=== PATIENT | female | born 1990 | race Caucasian/White ===

== ENCOUNTER 2024-05-26 23:51 | Inpatient (IN) | payer OTHER, SELFPAY ==
[2024-05-26] VITALS (9 sets, daily range): BP systolic 135–165; BP diastolic 90–104
[2024-05-26 21:40] LABS: Glucose - Point of Care 183 mg/dl (70-99)
[2024-05-26] MEDS: NARCAN 2 MG IV ×2 (21:42)
[2024-05-26 21:56] LABS: % Basophils 0.5 % (0-2); % Eosinophils 6.1 % (0-6); % Immature Granulocytes 0.5 % (0-0.5); % Lymphocytes 11.7 % (20.5-51.1); % Monocytes 5.9 % (1.7-9.3); % Neutrophils 75.3 % (42.2-75.2); Absolute Basophils 0.1 10^3/uL (0-0.2); Absolute Immature Granulocytes 0.1 10^3/uL (0-0.05); Absolute Neutrophils 12.7 10^3/uL (1.4-6.5); Hematocrit 43.4 % (37.0-47.0); Mean Corp Hgb Conc. 34.6 g/dL (33.0-37.0); Mean Corpuscular Hgb 29.8 pg (27.0-31.0); Mean Corpuscular Volume 86.1 fL (81.0-99.0); Mean Platelet Volume 9.4 fL (7.4-10.4); Nucleated Red Blood Cells % 0 %; Platelet Count 270 10^3/uL (130-400); Red Blood Cell Count 5.04 10^6/uL (4.20-5.40); Red Cell Dist. Width 12.6 % (11.5-14.5); White Blood Cell Count 16.8 10^3/uL (4.8-10.8)
[2024-05-26] MEDS: NARCAN 4 MG IV (21:57)
[2024-05-26 22:07] LABS: Amphetamines Positive (Negative)
[2024-05-26] MEDS: NARCAN 502 MG IV (22:07)
[2024-05-26 22:08] LABS: Barbiturates Negative (Negative); Benzodiazepines Positive (Negative); Buprenorphine Positive (Negative); Cocaine Positive (Negative); Marijuana Positive (Negative); Methadone Negative (Negative); Methamphetamines Positive (Negative); Opiates Negative (Negative); Phencyclidine Negative (Negative); Tricyclic Antidepressants Negative (Negative)
[2024-05-26 22:12] LABS: HCG, Serum Qualitative Screen Negative
[2024-05-26 22:13] LABS: ALT (SGPT) 23 U/L (0-35); AST (SGOT) 36 U/L (14-36); Acetaminophen < 10 ug/ml (10-30); Albumin 4.8 g/dl (3.5-5.0); Alkaline Phosphatase 65 U/L (38-126); Blood Urea Nitrogen 13 mg/dl (7-17); Calcium 9.2 mg/dl (8.4-10.2); Carbon Dioxide 27 mmol/L (22-30); Chloride 98 mmol/L (98-107); Glucose 168 mg/dl (70-99); Potassium 4.4 mmol/L (3.5-5.1); Salicylate < 1.0 mg/dl (2.0-20.0); Sodium 135 mmol/L (135-145); Total Bilirubin 0.7 mg/dl (0.2-1.3); Total Protein 7.9 g/dl (6.3-8.2); eGFR > 60.00
--- NOTE | 2024-05-26 22:15 | ED.GENMED ---
History of Present Illness
General
Chief Complaint: Overdose Unintentional
Source: patient and ambulance crew
Exam Limitations: altered mental status
Time Seen by Provider: 05/26/24 21:40
Nursing documentation reviewed up to this point in time: agreed with
History of Present Illness
History of Present Illness:
Patient presents to ED for evaluation after she was found to be unresponsive by her children, who called 911. Police arrived at scene and found the patient to be apneic and minimally responsive. Patient was given 4 mg of Narcan by police with
minimal responsiveness. Paramedics arrived at scene and found the patient in similar state with pinpoint pupils. Patient was given additional 4 mg of Narcan with mild improvement in mental status. Patient subsequently transferred to ED for an
evaluation. Upon arrival, patient is arousable to physical stimuli only, and unable to provide any further information. Per paramedics, there was number of drugs found at the household, include cocaine, heroin, and fentanyl.
Past History
Past History
ED Past Medical History: Psychiatric
ED Past Surgical History: None
Social History
Tobacco: Smoker
Alcohol: Occasional
Drug: Narcotics and Other (Former IV drug user, resumed heroin December 2018)
Personal: Single
Living: with family
Employment: Student
Review of Systems
Review of Systems
Allergies reviewed?: Yes
Unable to obtain full review of systems at this time due to: due to acuity
All Other Systems: Not applicable
Phy Exam
Physical Exam
Physical Exam:
Physical Exam
General: mild distress, acutely ill. afebrile. somnolent.
Head: nc/at. pupils 1mm bilaterally, minimally reactive.
Neck: supple.
Heart: s1/s2 regular rate and rhythm, no murmur. equal radial pulses.
Lungs: no acute respiratory distress. clear bilaterally
Abdomen: normal bowel sounds. not tender.
Neuro: Somnolent but arousable to physical stimuli. no focal neurological deficits, as there is spontaneous movements of both upper and lower extremities
Skin: no rash
Extremities: no edema.
Course
Orders/Labs/Results
Orders:
Orders
05/26/24 21:40
Electrocardiogram (*1) Urgent
Reason for Study: QTc Monitoring
EKG- Treatment ONCE
Test Result ONCE
05/26/24 21:41
Naloxone [Narcan] 2 mg IV NOW STA
Naloxone [Narcan] 2 mg IV NOW STA
05/26/24 21:46
Naloxone [Narcan] See Protocol IV [id number] PRN
Pulse Ox/cont/shift [RESP] Routine
Quantity: 1
Special Instructions: continuous pulse oximetry with audible alarm set at 92%
05/26/24 21:48
Acetaminophen Urgent
Alcohol Urgent
Arterial Blood Gas Urgent
%Oxygen/Room Air: 78
Complete Blood Count/With Diff Urgent
Comprehensive Metabolic Panel Urgent
HCG, Serum Qualitative Screen Urgent
Salicylate Urgent
05/26/24 21:50
Fentanyl, Urine Urgent
Urine Drug Abuse Screen Urgent
Date Specimen was Collected: 05/26/24
Time Specimen was Collected: 21:49
05/26/24 21:56
Naloxone [Narcan] 4 mg IV NOW STA
05/26/24 22:00
Naloxone [Narcan] 2 mg 0.9% Sodium Chloride 500 ml [Nss] 500 ml IV PER PROTOCOL
Dose for Titration in mg/hr:: 0.6
Titrate to keep:: Resp rate > 9
Frequency of titrations (minutes):: every 10 minute
Increase dose if:: Resp rate </=9 or ETCO2 > 55 mmHg or PaCO2 > 55 mmHg
Increase dose by:: 25% of current dose. (New Dose = current dose x
1.25)
If increased new dose < 0.2 mg/hr, bolus with (mg):: 0.08
If increased new dose 0.2 - 0.39 mg/hr, bolus with: 0.1
(mg)::
If increased new dose 0.4 - 0.59 mg/hr, bolus with: 0.2
(mg)::
If increased new dose 0.6 - 0.79 mg/hr, bolus with: 0.3
(mg)::
If increased new dose >/= 0.8 mg/hr, bolus with (mg):: 0.4
Decrease dose if:: respiratory rate > 10 and COWS 5-24
Decrease dose by:: 25% of current dose. (New Dose = current dose x
0.75)
Stop infusion if:: respiratory rate >/= 10 and COWS >/= 25
Restart infusion:: If resp rate </= 9, restart at 50% of prior infusion
dose
Maximum dose in mg/hr:: 6.25
Begin to taper infusion when:: patient remains at goal for 2 hours
Taper by:: 25% of current dose. (New Dose = current dose x
0.75)
Frequency of taper (minutes) if patient maintains: every 60 minutes
goal::
Turn infusion off when:: dose < 0.04 mg/hr
05/26/24 22:16
CT Head W/o Iv Contrast Urgent
Comment:
Reason For Exam: mental status change
05/26/24 22:55
Admit/Transfer Patient As Directed
Co-Sign Provider:
Level of Care: Inpatient admission
Assign to:: ICU
Physician / Group: hospitalist
Diagnosis: opioid overdose
Reason for Hospitalization: opioid overdose
Expected length of stay greater than two midnights?: Yes
ELOS- Estimated Length of Stay in days: 2
I certify the patient meets the requirements for IP care: Yes
05/26/24 22:56
Code Status As Directed
Resuscitation Status: Full Code
PRN Pain Medication Management As Directed
May give lesser potent ordered pain med per pt: Yes
preference::
Protocol:: Medication orders for pain may be administered in a
manner that supports deferring to patient preference
when the pt is:
- Requesting an ordered lesser potent pain medication.
Least to most potent pain medications are defined
as: acetaminophen < NSAID < tramadol < opioids
(morphine, oxycodone, hydromorphone).
- Requesting a lesser dose of the same medication IF
ORDERED.
- Requesting a less intrusive route of administration
if both routes are prescribed by the provider (PO <
IV).
Abnormal Lab Results
05/26/24 05/26/24 05/26/24
21:39 21:48 21:50
WBC 16.8 H 10^3/uL
(4.8-10.8)
Abs Immat Gran (auto) 0.1 H 10^3/uL
(0-0.05)
Absolute Neuts (auto) 12.7 H 10^3/uL
(1.4-6.5)
Absolute Monos (auto) 1.0 H 10^3/uL
(0.1-0.6)
Absolute Eos (auto) 1.0 H 10^3/uL
(0-0.7)
Neutrophils % 75.3 H %
(42.2-75.2)
Lymphocytes % 11.7 L %
(20.5-51.1)
Eosinophils % 6.1 H %
(0-6)
pCO2 48 H mmHg
(32-35)
pO2 182 H mmHg
(83-108)
ABG O2 Sat (Measured) 100.0 H %
(94-98)
Glucose 168 H mg/dl
(70-99)
Salicylates < 1.0 L mg/dl
(2.0-20.0)
Ur Buprenorphine Positive H
(Negative)
Urine Fentanyl Screen Positive H
(Negative)
Acetaminophen < 10 L ug/ml
(10-30)
Ur Amphetamines Screen Positive H
(Negative)
U Methamphetamines Scrn Positive H
(Negative)
U Benzodiazepines Scrn Positive H
(Negative)
Urine Cocaine Screen Positive H
(Negative)
U Marijuana (THC) Screen Positive H
(Negative)
POC Glucose 183 H mg/dl
(70-99)
05/26/24 21:48
05/26/24 21:48
Vital Signs
Initial and Last Documented VS:
Initial Vital Signs
BP
155/90
05/26/24 21:36
Last Documented Vital Signs
Temp Pulse Resp BP Pulse Ox
97 F 68 21 144/92 99
05/26/24 22:45 05/26/24 23:30 05/26/24 23:30 05/26/24 23:15 05/26/24 23:30
MDM/Problems Addressed
MDM/Problems Addressed:
Patient evaluated immediately upon arrival due to depressed mental status. Patient responding to painful stimuli only, but not able to stay awake and hold conversation. Patient given additional 8 mg of Narcan total with mild improvement in mental
status. Blood gas report reviewed and noted. Patient started on Narcan infusion. Patient will be admitted to ICU for further evaluation.
Patient evaluated on multiple occasions, maintaining gag reflex with respiratory drive. Patient is becoming more responsive to less painful stimuli. When aroused, patient is able to answer simple questions appropriately.
CT head: NAD.
Critical care statement: A total of 60 minutes of critical care time was provided for this patient. This includes management of unstable vital signs, evaluation of the patient at bedside, reviewing the patient's pertinent medical records, review of
old EKGs and review of pertinent medical records. This time with separate from time utilized to perform the aforementioned documented procedures
*EKG
Interpreted by ED Provider?: Yes
EKG Intrepretation Date: 05/26/24
Heart Rate: 65
Rate: normal
Rhythm: sinus
[place]: normal axis
Interval: normal interval and normal QT interval
*Critical Care Note
Total Time (30-74mins, 75-104mins- exclusive of procedures): 60 min
ED Attending Note
-
Portions of this chart may have been created with voice recognition software.� Occasional wrong word or��sound alike� substitutions may have occurred due to the inherent limitations of voice recognition software.
Discharge Plan
Departure
Patient Disposition: Admit
Date of Disposition: 05/26/24
Time of Disposition: 22:24
Admit to: ICU
Presentation/result/management discussed w/ accepting MD/DO: Hospitalist
Discharge Problem:
Overdose
Prescriptions:
No Action
montelukast 10 MG tablet
10 mg PO DAILY
lorazepam [Ativan] 2 MG tablet
2 mg PO QIDPRN PRN (Reason: anxiety)
zolpidem 5 MG tablet
5 mg PO HS
albuterol sulfate 1 PUFF HFA aerosol inhaler
2 puff inhalation R Q4HPRN PRN (Reason: sob)
[facility]FA [] 1 EACH tablet
1 ea PO DAILY
acetaminophen 325 MG tablet
650 mg PO Q4HPRN 0RF
sennosides-docusate sodium 1 TABLET tablet
1 tab PO DAILYPRN PRN (Reason: constipation) Qty: 30 0RF
ibuprofen 600 MG tablet
600 mg PO Q4HPRN PRN (Reason: cramps) Qty: 30 0RF
naloxone [Narcan] 4 MG spray,non-aerosol
4 mg intranasal DIRECTED PRN (Reason: opiod overdose) Qty: 2 0RF
Interventions
Interventions:
*Risk Screen - Suicide Last Done: 05/26/24 21:40
*General Assessment Last Done: 05/26/24 21:40
*Neglect/Abuse Screening Last Done: 05/26/24 21:40
ED- Fall Risk Assessment Last Done: 05/26/24 23:44
*ED COVID-19 Vaccine History Last Done: 05/26/24 22:13
*Nursing Disposition Last Done: 05/26/24 23:44
ED- Cardiac Assessment Last Done: 05/26/24 22:23
ED- Neurological Assessment Last Done: 05/26/24 22:23
ED-Psychological Assessment Last Done: 05/26/24 22:23
ED- Pulmonary Assessment Last Done: 05/26/24 22:23
Discharge Date and Time
Print Language: ESTONIAN
[2024-05-26 22:16] LABS: B.E. 1.6 mmol/L; HCO3 27.7 mmol/L (21-28); PCO2 48 mmHg (32-35); PO2 182 mmHg (83-108); pH 7.37 (7.35-7.45)
[2024-05-26 22:17] LABS: Alcohol None Detected
[2024-05-26 22:28] LABS: Fentanyl, Urine Positive (Negative)
--- NOTE | 2024-05-26 22:47 | HPS.HSE ---
Family Physician
-
Family Physician: INTERVIEWE UNKNOWN - PT NOT
Chief Complaint
-
Intentional overdose
History of Present Illness
Patient with a history of opiate dependence, drug abuse and asthma who presents to the emergency department unresponsive after being found down with opioid paraphernalia at home.
Patient unable to provide any history. According to medical records young son called 911 after he found out unresponsive. Last known normal is unclear. She was found with several bags of heroin around. She also had cocaine. No history to
corroborate but it appears to be an intentional overdose.
Per EMS, police gave 4 mg of Narcan. She was found to be 80% on room air. She was given additional 2 mg of intranasal Narcan and then 2 mg of IM Narcan. Placed on 100% nonrebreather and transferred to ED. On arrival in the emergency department
she received another 8 mg of Narcan with improvement.
Now she is arousable to painful stimuli and able to hold up her head and protect her airways.
Blood pressure was 160/100, pulse was 68 she is satting 98% on 4 L. ABG shows a 7.37/48. ECG is normal sinus rhythm at a rate of 65. She has a white count of 16,000 but otherwise CBC unremarkable. BUN, creatinine and electrolytes were also
unremarkable. CT of the head shows no acute findings. Urine tox screen was positive for multiple opioids including fentanyl and Suboxone. She also had cocaine, methamphetamine, cannabis.
Medical History
Past Medical History
Past Medical History: Reports Psychiatric and Other (drug dependence)
Past Surgical History: Reports None
Social History
Unable to obtain full social history at this time due to: Patient Non-verbal
Drug: Marijuana, Cocaine, Narcotics and IVDA
Family History
Family History: Not pertinent
Allergies / Home Medications
Allergies reflects when Allergies were last updated in [facility].
Home Medications with original date entered in [facility]
Allergy/Medication List:
Allergies
Allergy/AdvReac Type Severity Reaction Status Date / Time
No Known Allergies Allergy Verified 02/24/19 20:44
Home Medications
montelukast 10 mg tablet 10 mg PO DAILY Allergies 12/19/18
albuterol sulfate 90 mcg/actuation aerosol inhaler 2 puff inhalation R Q4HPRN PRN sob 03/07/20
lorazepam 2 mg tablet (Ativan) 2 mg PO QIDPRN PRN anxiety 03/07/20
vit no.95-ferrous fumarate 28 mg-folic acid 800 mcg tablet () 1 ea PO DAILY Supplement 03/07/20
zolpidem 5 mg tablet 5 mg PO HS Sleep 03/07/20
acetaminophen 325 mg tablet 650 mg (2 x 325 mg) PO Q4HPRN 03/12/20
ibuprofen 600 mg tablet 600 mg PO Q4HPRN PRN cramps #30 tabs 03/12/20
sennosides 8.6 mg-docusate sodium 50 mg tablet 1 tab PO DAILYPRN PRN constipation #30 tabs 03/12/20
naloxone 4 mg/actuation nasal spray (Narcan) 4 mg intranasal DIRECTED PRN opiod overdose #2 units 10/25/20
Review of Systems
-
Unable to obtain full review of systems at this time due to: Patient Non-verbal
Physical Exam
Vital Signs
Vital Signs
Pulse Resp BP Pulse Ox
68 23 160/103 100
05/26/24 22:15 05/26/24 22:15 05/26/24 22:15 05/26/24 22:22
Physical Exam
General: Other (Somnolent)
HEENT: NormoCephalic, Anicteric, Moist mucous membranes, Atraumatic and Oxygen
Respiratory: Clear and Non Labored Respirations
Cardiac: S1/S2 and Regular Rhythm
Breast: Deferred by me
GI: Soft, Non Tender, Non Distended and Normal Bowel Sounds
Rectal: Deferred by Provider
Genito-urinary: Deferred by me
Musculoskeletal: No Clubbing, No Cyanosis and No Edema
Skin: Warm
Neuro: Nonfocal/grossly intact
Hematologic/Lymphatic: No Lymphadenopathy
Laboratory Results
-
05/26/24 21:48
05/26/24 21:48
Laboratory Results
pH 7.37 (7.35-7.45) 05/26/24 21:48
pCO2 48 mmHg (32-35) H 05/26/24 21:48
pO2 182 mmHg (83-108) H 05/26/24 21:48
HCO3 27.7 mmol/L (21-28) 05/26/24 21:48
Total Bilirubin 0.7 mg/dl (0.2-1.3) 05/26/24 21:48
AST 36 U/L (14-36) 05/26/24 21:48
ALT 23 U/L (0-35) 05/26/24 21:48
Alkaline Phosphatase 65 U/L (38-126) 05/26/24 21:48
Data Reviewed
-
CT Scan: Report Reviewed by me
Medical Tests (Nuc Med, Echo, EKG etc): Image Personally Visualized and interpreted
Lab Data: Labs Reviewed by me
Old Records: Reviewed
Impression/Plan
-
IMPRESSION:
Intentional opioid overdose. Currently maintaining airways on narcan gtt. RR of around 16. pH 7.37, bicarb 48.
PLAN:
1. Opioid o/d
- admit to icu
- continue narcan gtt, titrate per protocol
- oxygen
- nebs rtc for now
- iv fluids with LR at 150 ml/hr
- 1:1
- npo
- psych consult
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
DVT PPX - lovenox sq
[2024-05-27] VITALS (17 sets, daily range): BP systolic 98–137; BP diastolic 42–87; RESP 11–19
--- NOTE | 2024-05-27 | PTCARENOTE ---
pt adm to ICU from ER, arouses to pain, able to say 'Rosalina' when asked her name, eyes closed when not stimulating. SR HR 60s. LAC IV patent- Narcan gtt infusing per work list. Sat 99% on 1LNC, etCO2 36. CHG done, purewick in place. bed alarm on.
[2024-05-27] MEDS: LR 1000 IV (00:37)
[2024-05-27] MEDS: NARCAN 502 MG IV ×2 (01:45→05:23)
[2024-05-27 03:59] LABS: Hematocrit 41.1 % (37.0-47.0); Hemoglobin 14.2 g/dL (12.0-16.0); Mean Corp Hgb Conc. 34.5 g/dL (33.0-37.0); Mean Corpuscular Hgb 30.4 pg (27.0-31.0); Mean Platelet Volume 9.4 fL (7.4-10.4); Platelet Count 257 10^3/uL (130-400); Red Blood Cell Count 4.67 10^6/uL (4.20-5.40); Red Cell Dist. Width 12.5 % (11.5-14.5); White Blood Cell Count 11.7 10^3/uL (4.8-10.8)
--- NOTE | 2024-05-27 04:00 | PTCARENOTE ---
pt more awake, able to hold conversation, oriented but confused as to the timeline of events leading her to being in hospital, calm/cooperative, back to sleep when done care.
[2024-05-27 04:18] LABS: INR 1.07; PT 14.2 Sec (11.4-14.6)
[2024-05-27 04:19] LABS: APTT 47.2 Sec (23.4-35.0)
[2024-05-27 04:20] LABS: Ammonia < 9 umol/L (9-30)
[2024-05-27 04:23] LABS: Blood Urea Nitrogen 10 mg/dl (7-17); Carbon Dioxide 29 mmol/L (22-30); Chloride 102 mmol/L (98-107); Creatine Phosphokinase 88 U/L (30-135); Glucose 125 mg/dl (70-99); Potassium 4.4 mmol/L (3.5-5.1); Sodium 140 mmol/L (135-145); eGFR > 60.00
[2024-05-27 04:52] LABS: TSH 0.34 uIU/ml (0.47-4.68)
[2024-05-27] MEDS: VENTOLIN NEBULES 2.5 MG INH (07:19)
--- NOTE | 2024-05-27 07:30 | PTCARENOTE ---
0700 pt in bed. AAO x3. Cristobal pain. COWS 1; BP via RT upper arm 108/60 SR 75; RR 13; 100/1L CO2 29; Left AC peripheral line # 22 LR 150; Narcan qtt 0.6/150ml 1:[address]
--- NOTE | 2024-05-27 08:08 | SUR.OPER ---
RR 13; CO2 23 Narcan decreased per protocol from 0.6 to 0.45
--- NOTE | 2024-05-27 08:57 | W.PN.HOSP.TC ---
Today's Communication/Plan
-
Cleared by psychiatry for discharge today
Assessment / Plan
Assessment / Plan
HPI: Patient with a history of opiate dependence, drug abuse and asthma who presents to the emergency department unresponsive after being found down with opioid paraphernalia at home.
Patient unable to provide any history. According to medical records young son called 911 after he found out unresponsive. Last known normal is unclear. She was found with several bags of heroin around. She also had cocaine. No history to
corroborate but it appears to be an intentional overdose.
Per EMS, police gave 4 mg of Narcan. She was found to be 80% on room air. She was given additional 2 mg of intranasal Narcan and then 2 mg of IM Narcan. Placed on 100% nonrebreather and transferred to ED. On arrival in the emergency department
she received another 8 mg of Narcan with improvement.
Now she is arousable to painful stimuli and able to hold up her head and protect her airways.
Blood pressure was 160/100, pulse was 68 she is satting 98% on 4 L. ABG shows a 7.37/48. ECG is normal sinus rhythm at a rate of 65. She has a white count of 16,000 but otherwise CBC unremarkable. BUN, creatinine and electrolytes were also
unremarkable. CT of the head shows no acute findings. Urine tox screen was positive for multiple opioids including fentanyl and Suboxone. She also had cocaine, methamphetamine, cannabis
A/P:
1. Opioid overdose with opioid dependency maintained on Suboxone
Resolved status post Narcan drip
Breathing status stable, currently satting well on room air
Cleared by psychiatry for discharge today
2. Severe anxiety
Follow-up with her usual psychiatrist outpatient
Physical Exam
General: No acute distress
HEENT: Normocephalic, Atraumatic, EOMI, MMM
Respiratory: Clear to Auscultation bilaterally
Cardiac: Normal S1/S2, Regular Rate and Rhythm
GI: Soft, Nontender, Nondistended, Normal Bowel Sounds
Extremities: No Clubbing, Cyanosis, or Edema
Neuro: Nonfocal/Grossly Intact
Psych: Severely anxious
Derm: No Visible lesions
Anticipated Discharge: Today
Subjective/Interval History
-
Date of Service: May 27, 2024
Patient denies chest pain, shortness of breath. No fever, no vomiting. She has severe anxiety. Reports feeling well overall, and is eager for discharge.
Objective Data
-
Labs:
Laboratory Results
05/26/24 05/27/24
21:48 03:46
WBC 16.8 H 11.7 H
Hgb 15.0 14.2
Hct 43.4 41.1
Plt Count 270 257
PT 14.2
INR 1.07
APTT 47.2 H
HCO3 27.7
Sodium 135 140
Potassium 4.4 4.4
Chloride 98 102
Carbon Dioxide 27 29
BUN 13 10
Creatinine 0.7 0.7
Glucose 168 H 125 H
Calcium 9.2 9.0
Total Bilirubin 0.7
AST 36
ALT 23
Alkaline Phosphatase 65
Vital Signs:
Vital Signs
Temp Pulse Resp BP Pulse Ox
98.2 F 85 12 105/42 100
05/27/24 08:15 05/27/24 08:00 05/27/24 08:00 05/27/24 08:00 05/27/24 08:00
I&O
05/26/24 05/27/24 05/28/24
06:59 06:59 06:59
Intake Total 1800 / 2075 513 / 513
Output Total 500 / 600 100 / 100
Balance 1300 / 1475 413 / 413
--- NOTE | 2024-05-27 09:30 | SUR.OPER ---
patient AAO x3. denies of attentional overdosing, states that she was not using any illicit drugs for years, ' I randomly found all drugs at home from years ago that is why I end up using it ' pt determine to leave hospital against medical advice.
waiting for phycyotrist to determine if pt is safe to go home 1:[address]
--- NOTE | 2024-05-27 09:59 | CON.INTV ---
Consultation
Consultation Request
Date/Time Consultation Requested: 05/27/2024-8 AM
Date/Time Consultation Performed: 05/27/2024-8:30 AM
Requesting Provider: Hospitalist
Performing Provider: Dr. Hopkins
Reason for Consultation: Critical care management post overdose
Medical History
-
Chief Complaint: Overdose
History of Present Illness:
33-year-old female with a history of opiate dependence, drug abuse as well as asthma presented being unresponsive after being found down with opioid paraphernalia at home-son called 911 and was found with several bags of heroin as well as
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
05/27/2024. Patient is now in the medical intensive care unit, she is alert, oriented, tearful, stating she did not want to have an intentional overdose, she just found stuff 'laying around the house', denies any shortness of breath, chest pain,
chest tightness, productive cough, abdominal pain, nausea, leg swelling or weakness.
Past Medical History
Past Medical History: None (History of opiate dependence. Drug abuse. Asthma.)
Social History
Tobacco: Non-smoker
Drug: Cocaine and Narcotics
Personal:
Living: With Family
Occupational Exposures: No known asbestos exposure
Environmental Exposures: No known tuberculosis exposure
Family History
Family History: Reviewed & Not Pertinent
Allergies / Home Medications
Allergies
Allergy/AdvReac Type Severity Reaction Status Date / Time
No Known Allergies Allergy Verified 02/24/19 20:44
Home Medications
�Medication �Instructions �Recorded �Confirmed �Last Taken �Type
montelukast 10 mg tablet 10 mg PO DAILY Allergies 12/19/18 03/07/20 03/06/20 08:00 History
albuterol sulfate 90 mcg/actuation 2 puff inhalation R Q4HPRN PRN sob 03/07/20 03/07/20 03/05/20 08:00 History
aerosol inhaler
lorazepam 2 mg tablet (Ativan) 2 mg PO QIDPRN PRN anxiety 03/07/20 03/07/20 03/05/20 22:00 History
vit no.95-ferrous 1 ea PO DAILY Supplement 03/07/20 03/07/20 03/06/20 08:00 History
fumarate 28 mg-folic acid 800 mcg
tablet ()
zolpidem 5 mg tablet 5 mg PO HS Sleep 03/07/20 03/07/20 03/05/20 22:00 History
acetaminophen 325 mg tablet 650 mg (2 x 325 mg) PO Q4HPRN 03/12/20 Unknown Rx
ibuprofen 600 mg tablet 600 mg PO Q4HPRN PRN cramps #30 03/12/20 Unknown Rx
tabs
sennosides 8.6 mg-docusate sodium 1 tab PO DAILYPRN PRN constipation 03/12/20 Unknown Rx
50 mg tablet #30 tabs
naloxone 4 mg/actuation nasal 4 mg intranasal DIRECTED PRN 10/25/20 Unknown Rx
spray (Narcan) opiod overdose #2 units
Review of Systems
-
Unable to Obtain full review of systems at this time due to: Other (Per HPI)
Vitals / Labs / Diagnostic Testing
Vital Signs
Temp Pulse Resp BP Pulse Ox
98.2 F 85 12 105/42 100
05/27/24 08:15 05/27/24 08:00 05/27/24 08:00 05/27/24 08:00 05/27/24 08:00
Lab Data
05/27/24 03:46
05/27/24 03:46
Laboratory Results
05/26/24 05/27/24
21:48 03:46
PT 14.2
INR 1.07
APTT 47.2 H
pH 7.37
pCO2 48 H
pO2 182 H
HCO3 27.7
O2 Delivery Level
Diagnostic Testing:
Physical Exam
-
Exam:
Well-nourished and well-developed in no apparent distress
HEENT-atraumatic, normocephalic
Neck-supple, no JVD, no bruit
Heart-regular rate and rhythm-no murmurs, rubs or gallops
Chest-clear to auscultation, no wheezes, crackles
Back-no tenderness
Abdomen-soft, nontender, nondistended, no hepatosplenomegaly
Extremities-no cyanosis, clubbing, edema and good peripheral pulses
Integument-intact, no rashes, lesions or ecchymosis
Neurology-alert and oriented, nonfocal motor and sensory exam
Assessment
-
33-year-old female with a history of opiate dependence, drug abuse as well as asthma presented being unresponsive after being found down with opioid paraphernalia at home-son called 911 and was found with several bags of heroin as well as
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
05/27/2024.
Multidrug overdose-intentional unknown
UDS positive buprenorphine, fentanyl, amphetamine, methamphetamine, benzodiazepine, cocaine, marijuana
Leukocytosis
Hyperglycemia
Conditions present prior to admission:
History of opioid dependence
Asthma
Plan
Patient will be admitted to medical intensive care
Supplemental oxygen
ABG reviewed-mild hypercapnia
Asthma stable
Albuterol as needed
Etiology of drug overdose-multidrug as noted above and urine drug screen
Monitor for arrhythmias-monitor QTC, QRS, etc.
CT head-summarized above
For opiate overdose-multiple rounds of Narcan already provided
Monitor for respiratory depression, contricted pupils,
Dextromethorphan - serotonin toxicity
Fentanyl - amnestic, chest wall rigidity
Hydrocodone - often combined with acetaminophen
Loperamide - QRS and QT prolongation, wide complex tachy
Meperidine - seizure, serotonin toxicity
Methadone - very long acting, QT prolongation, Torsades
Oxycodone - often combined with acetaminophen, QT prolongation
Tramadol - seizure, serotonin toxicity
Naloxone- consider drip
Often Xylazine coadministered with Fentanyl
causes coma, apnea, bradycardia and hypotention, skin ulcerations
withdrawal irratibility, craving, anxiety, dysphoria, tachy, aches, htn
check levels
For benzodiazepine overdose
Monitor for sedation, airway protection, intubate if necessary, supportive care
Consider propylene glycol toxicity if parenteral diazepam or lorazepam was used
Flumazenil could be considered
With history of marijuana use there is a potential for 'synthetic marijuana'-also called 'K2' or 'Spice'
Does not show up on UDS
Monitor for agitation, seizures, and psychosis
Treat with benzodiazepines such as Ativan
Intravenous fluids
Psychiatric evaluation
DVT prophylaxis
Aspiration precautions
Early nutrition
Early mobilization
Critical care statement: A total of 55 minutes of critical care time was provided for this patient today. This includes management of unstable vital signs, evaluation of the patient at bedside, reviewing the patient's pertinent medical records
including radiographs, microbiology, laboratory evaluations, and discussion with primary team and critical care nursing.
Diagnostic data:
Chest x-ray 05/27/2024-NAD
CT head 05/26/2024-no acute intracranial abnormalities
Data Reviewed
-
EKG: Report reviewed by me
Radiology: Image personally visualized and interpreted and Report reviewed by me
CT Scan: Report reviewed by me
Medical Tests (Nuc Med, Echo etc): Report reviewed by me
Labs: Labs reviewed by me
Old Records: Reviewed
Critical Care Time (in minutes): 55
--- NOTE | 2024-05-27 10:39 | CS.PSYCHR ---
Consult Summary - Psychiatry
-
Pt seen, record reviewed, discussed with nursing staff. Pt is a 33 yo female with history of Opioid use d/o, reportedly in remission on Suboxone treatment, who presented to ED after found unresponsive by her family. Pt was given Narcan twice by
EMS/police with limited response. Today pt seen in ICU sitting up in bed alert and oriented; she remains on a Narcan drip. Psychiatry asked to assess due to the pt reportedly wanting to leave. Pt states she has been clean for years, has a 'great
life' with her and 3 children, denies any recent or current suicidal thoughts or plans. Pt states she found some 'old bags' of heroin/fentanyl and decided it would be okay to snort some. Pt denies any intent to OD, is tearful talking about
the impact of her 'screw- up' on her family, states she has a close support system including her , [id number], sister, mother. Pt is on Suboxone treatment, gets counseling with it, has a therapist and has been on Prozac for years. Pt
denies feeling depressed or any recent active mental health problems.
Psych Hx: seen by Psychiatry here at Feb 2019 with similar presentation- unintentional opioid OD
hx of anxiety/depression, prescribed Prozac for years- reports current dose 40 mg QD
No hx of inpatient treatment; past outpatient psychiatrist, has outpatient therapy
Subst Use Hx: opioid- fentanyl snorted (denies IV use), methamphetamine/cocaine/MJ occasionally; hx of DUI in the past due to Xanax intoxication- attended court-ordered classes at [facility]
Pt reports being 'clean' for 7 years on Suboxone treatment; PDMP shows recent prescriptions for Suboxone 8 mg BID from [facility] [place]
SH: college-educated, working full-time. First from a drug OD 10 years ago. Pt is remarried, has 2 step-children ages 7 and 11, and 4 yo son with .
MSE: alert, oriented, calm, cooperative, sitting up in bed. Affect appropriate- tearful contemplating the affect of her accidental OD on her family//children. Mood stable; pt denies any suicidal ideation, states she has a 'great life' and
would never intentionally harm herself. Speech/thought coherent/goal-directed, no signs of psychosis. Insight fair
Imp/Rec: Opioid Use d/o, with relapse and unintentional OD. Pt does not appear to be a significant suicide risk
Unspecified polysubstance use- UDS + for Bup, Fty, amphet/meth, Nidhi, MJ
Pt is psychiatrically stable/cleared for discharge to return to outpatient treatment, when medically stable.
would not give Subutex unless pt is off Narcan drip and showing at least mild opioid withdrawal symptoms
--- NOTE | 2024-05-27 11:09 | PTCARENOTE ---
patient currently not on observation 1:1 Narcan off VS stable
[2024-05-27] MEDS: VENTOLIN NEBULES INH (11:30)
--- NOTE | 2024-05-27 11:58 | W.DCSUMMARY ---
Discharge Summary
Discharge Data
Date of Admission: 05/26/24
Date of Discharge: 05/27/24
-
Pending Results: No
Hospital Course
Discharge diagnosis:
Opioid overdose
Opioid dependency maintained on Suboxone
Severe anxiety
Consults: [employer], psychiatry
Hospital course:
33-year-old female with a history of opiate dependence, drug abuse as well as asthma presented being unresponsive after being found down with opioid paraphernalia at home-son called 911. Patient was found with several bags of heroin as well as
cocaine. She received Narcan by police with 80% saturation on room air, given an additional 2 mg of intranasal Narcan, and then received another 8 mg of Narcan in the emergency room. Patient was treated with an IV Narcan drip. By the following
day, her mentation was back to baseline. 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 She denies shortness of breath, and was satting well on room air. She remains severely anxious. She reports not having any intention to use
again. She has a good support system, and wishes to be discharged. She is cleared by psychiatry for discharge. She needs to follow-up with her primary care doctor in 1 week, and her usual psychiatrist as soon as possible.
Disposition: Home self-care
Discharge planning: Required 45 minutes
Discharge Plan
-
Patient Disposition: Home (Routine Discharge)
Discharge Diagnosis/Procedures: Opioid overdose, anxiety
Condition: Good
Diet: Regular
Activity: As tolerated
Driving Restrictions: As prior to admission
Activity Restrictions/Additional Instructions:
Please follow-up with your usual psychiatrist as soon as possible.
Abstain from illicit drug use.
Follow-up with your primary care doctor in 1 week as well.
Referrals:
UNKNOWN - PT NOT,INTERVIEWE [Family Provider] -
Prescriptions:
Continued
zolpidem 5 MG tablet
5 mg PO HS PRN (Reason: Sleep)
albuterol sulfate 1 PUFF HFA aerosol inhaler
2 puff inhalation R Q4HPRN PRN (Reason: sob)
PNV cmb#95-ferrous fumarate-FA [] 1 EACH tablet
1 ea PO DAILY
naloxone [Narcan] 4 MG spray,non-aerosol
4 mg intranasal DIRECTED PRN (Reason: opiod overdose) Qty: 2 0RF
buprenorphine-naloxone [Suboxone] 8-2 mg Film
2 film BUCCAL DAILY
Discharge Orders:
Discharge Patient (As Directed); Ordered 05/27/24
Ordered By: Diallo Johnson
Discharge Date and Time
Discharge Date/Time: 05/27/24 12:56
Print Language: TOGOLESE
--- NOTE | 2024-05-27 12:49 | PTCARENOTE ---
Patient d/c home. patient's called uber for pt's transport to home. Peripheral line removed. all d/c instructions provided pt confirmed understanding
--- NOTE | 2024-05-27 12:50 | CM ---
Addendum entered by Parisa Rodriguez RN 05/27/24 13:27:
Leisa for after hours requested pt stay till C and Y can talk about a Safety plan.
ICU said pt has left.
Leisa called back informed her pt has left hospital.
Original Note:
Pt brought in with drug overdoes. Pt is now alert awake oriented patient lives with her Jorge Rabago 12/01/87 and 3 kids.Jacob Mendoza 03/08/2020 is her only biological child. Jorge is biological to all 3 children Alysha Mendoza 07/18/16 and
Isaac 10/18/12 . All live together in 2 story home with 1 step to enter and 14 steps to bed bathroom.Pt is on Subaxone 8 mg for hx of drug abuse. She said she is clean x 6 years but found old bag and snorted bag. She was unresponsive and brought via
ambulance to . Pt is on Narcan Gtt in ICU. 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 Jorge said he would send an Uber for pt to get home.Pt is cooperative and wishes to be dc. Psychiatry saw and
cleared for dc.
Instructed pt [employer] would be called. Pt became tearful saying she has a good life and does not want [employer] involved.
[facility] called spoke with Nataly Gallagher all information given that is in this assessment..
[facility] Pt on Suboxone 8 mg she gets meds from Dr Estrellita Avila and Dr Carvalho.
Hx on 30 day program at [facility] in 2016
PCP [facility]
PLAN Home declined dc services.If not dc she may sign out AMA.
== END 2024-05-27 12:56 | disposition home or self-care (01) | DRG 918 ==
LOC: ICU 23:51
PROVIDERS: ADMITTING PHYSICIAN Internal Medicine; ATTENDING PHYSICIAN Family Medicine; CONSULT PHYSICIAN Psychiatry & Neurology Psychiatry; EMERGENCY PHYSICIAN Emergency Medicine; OTHER PHYSICIAN Internal Medicine Critical Care Medicine
DX: T40.2X2A Poisoning by other opioids, intentional self-harm, initial encounter (principal); F11.20 Opioid dependence, uncomplicated; F19.90 Other psychoactive substance use, unspecified, uncomplicated; F17.200 Nicotine dependence, unspecified, uncomplicated; J45.909 Unspecified asthma, uncomplicated; F41.9 Anxiety disorder, unspecified; D72.829 Elevated white blood cell count, unspecified; R73.9 Hyperglycemia, unspecified; R41.82 Altered mental status, unspecified
CPT/HCPCS: 70450; 71045; 80048; 80053; 80143; 80179; 80306; 80307; 82077; 82140; 82550; 82805; 82962; 84443; 84703; 85025; 85027; 85610; 85730; 87070; 93005; 94640; 96374; 99291